=== PATIENT | male | born 1970 | race Caucasian/White ===

== ENCOUNTER → 2018-07-10 | Outpatient (CLI) | payer BC ==
--- NOTE | 2018-07-10 14:38 | CARD ---
MR#: [id number] Date of Study: 07/10/2018 Ordering Physician: BENNY FERNANDEZ, Referring Physician: BENNY FERNANDEZ, Tech: Aida Gallagher CS APPROVED REPORT INDICATION Chest Pain Reason : Patient complained of pain PROCEDURE The patient underwent an Exercise Stress Test using the You Protocol. Blood pressure, heart rate, a nd EKG were monitored. An Echocardiogram was performed by gallery or museum technician in four stages in quad fashion. At peak stress four se lected images were obtained and placed side by side with resting images for comparison. STRESS ECHO FINDINGS The resting Echocardiogram showed normal left ventricular systolic contractility with an estimated Ej ection Fraction of about 55 %. The Resting Echocardiogram showed normal augmentation of myocardial wall segments using a 16 segment model. The Stress Echocardiogram showed normal augmentation of myocardial wall segments using a 16 segment m kd. The Stress Echocardiogram left ventricular systolic contractility has an estimated Ejection Fraction of about 70%. Test Type: Exercise Stress Nurse/Tech: Amanda Carrera R.N. Test Indications: chest pain, SOB Cardiac History and Allergies: See EHR Medications: See EHR Medical History: See EHR Resting ECG: SB w/ inverted T waves in lead I,II, AVR. ST elevation in leads V2-V6 Resting Heart Rate: 54 bpm Resting Blood Pressure: 112/72mmHg Pretest Chest Pain: No chest pain Nurse/Tech Notes S1S2, lungs CTA Stress Symptoms No chest pain or symptoms. POST EXERCISE Reason for Termination: Reached target heart rate Target HR: Yes Max HR: 173 bpm 100% of Maximum Predicted HR: 173 bpm Exercise duration: 14:01 min:sec, 5 Stage Exercise capacity: 14.8METs Max Blood Pressure: 184/94mmHg Blood Pressure response to exercise: Normal blood pressure response during stress. Heart Rate response to exercise: wnl Chest Pain: No. Arrhythmia: No. ST Change: Yes. RESTING ECG Rhythm: Sinus Conduction: Normal Arrhythmias: None Repolarization: nonspecific ST-T changes STRESS ECG Rhythm: Sinus Tachycardia Conduction: Normal Arrhythmias: None Repolarization: ST depression Mildly positive ST-Segment changes. Timing of ST-Segment Depression: Stress only ST-Segment Configuration: Upsloping ST-Segment Depression Amount: 1 mm Stress EKG shows no significant changes. Preliminary Notification Critical Value: No <Conclusion> Good exercise capacity with 14.8 mets achieved on You Protocol Normal resting EKG w/ non-specific J-point elevation. Normal resting wall motion and EF at 55% Normal stress wall motion and EF at 70% No significant stress EKG changes to suggest ischemia Low risk study Signed by : Benny Fernandez, Electronically Approved : 07/10/2018 14:37:56
[2018-07-10 15:23] LABS: CHOLESTEROL/HDL RATIO 2.4
== END | disposition home or self-care (01) ==
LOC: ECHO 12:52
PROVIDERS: ATTEND Internal Medicine Cardiovascular Disease
DX: R00.0 Tachycardia, unspecified (principal); E78.5 Hyperlipidemia, unspecified
CPT/HCPCS: 36415; 80061; 83880; 84443; 93017; 93350